=== PATIENT | female | born 1985 | race Caucasian/White ===

== ENCOUNTER 2018-04-27 05:51 | Emergency (ER) | payer BC ==
[~2018-04-27] VITALS: Ht 165.1 cm; Wt 61.8 kg
[~2018-04-27 05:51] MED LIST: AMOXICILLIN 50500 MG PO; FLAGYL250 MG PO; FLEXERIL10 MG PO; LORTAB 5/500 501 TAB PO; MIRENA52 MG IU; MOTRIN 800800 MG/TAB PO; NAPROSYN375 MG PO; NAPROXEN 3375 MG/TAB PO; NO HOME MEDICATIONS; NORCO 325 MG-51 TAB PO; PHENERGAN 25 TA25 MG PO; PROCTOFOAM15 GM RC; TRINESSA 281 TAB PO; VICODIN 5/5001 UDTAB PO
[2018-04-27 05:54] VITALS: TEMP 98.6
[2018-04-27 07:24] LABS: BASO # 0.1 (0.0-0.2); BASO % 0.9 % (0.0-2.0); EOS # 0.3 (0.0-0.7); EOS % 3.4 % (0-4.0); GRAN # 2.9 (1.4-6.5); GRAN % 39.6 % (42.2-75.2); HEMATOCRIT 44.8 % (37.0-47.0); HEMOGLOBIN 14.7 g/dl (12.5-16.0); LYMPH # 3.4 (1.2-3.4); LYMPH % 45.8 % (20.0-51.0); MEAN CELL VOLUME 88 fl (80.0-100.0); MEAN CORPUSCULAR HEMOGLOBIN 29 pg (27.0-31.0); MEAN CORPUSCULAR HGB CONC 33 g/dl (33.0-37.0); MEAN PLATELET VOLUME 11.8 fl (7.4-10.4); MONO # 0.8 (0.1-0.6); MONO % 10.2 % (1.7-9.3); PLATELET COUNT 227 K/mm3 (130-400); RED BLOOD COUNT 5.09 M/mm3 (4.10-5.30); REDCELL DISTRIBUTION WIDTH-CV 12.9 % (11.5-14.5)
[2018-04-27 07:49] LABS: COLLECTION METHOD CLEAN CATCH
[2018-04-27 07:56] LABS: MUCOUS Present /lpf; PH 5 (5-8); URINE APPEARANCE Hazy; URINE BACTERIA Rare /hpf; URINE BILIRUBIN Negative (NEGATIVE); URINE BLOOD 2+ (NEGATIVE); URINE COLOR Yellow; URINE GLUCOSE Negative (NEGATIVE); URINE KETONE Negative (NEGATIVE); URINE LEUKOCYTE ESTERASE Negative (NEGATIVE); URINE NITRATE Negative (NEGATIVE); URINE PROTEIN(semi-quant) Negative (NEGATIVE); URINE UROBILINOGEN Negative (NEGATIVE)
[2018-04-27 08:16] LABS: BILIRUBIN,TOTAL 0.3 mg/dL (0.0-1.0); C-REACTIVE PROTEIN 2.2 mg/dL (0.0-0.9); CALCIUM 8.6 mg/dL (8.4-10.2); CREATININE, serum 0.58 mg/dL (0.52-1.25); POTASSIUM 4.9 mmol/L (3.4-5.0); TOTAL PROTEIN 8.1 gm/dL (6.4-8.2)
[2018-04-27] MEDS ORDERED: ZOFRAN ODT4 MG PO (11:39)
[2018-04-27] MEDS ORDERED: NORCO 325 MG-51 TAB PO (11:39)
[2018-04-27 12:13] VITALS: BP 111/63; PULSE 72
== END 2018-04-27 12:15 | disposition home or self-care (01) ==
LOC: COL.ER 05:51
PROVIDERS: Emergency Medicine
DX: N83.202 Unspecified ovarian cyst, left side (principal); Z98.51 Tubal ligation status
CPT/HCPCS: J1170; J1885; J2405; J7030

== ENCOUNTER 2019-07-26 13:47 | Emergency (ER) | payer MEDICAID ==
[~2019-07-26] VITALS: Ht 165.1 cm; Wt 63.6 kg
[~2019-07-26 13:47] MED LIST changes: +NEXIUM 40MG40 MG PO; +ZOFRAN ODT4 MG PO
[2019-07-26 13:51] VITALS: BP 110/92; TEMP 98.3
[2019-07-26] MEDS ORDERED: LEXAPRO20 MG PO (13:54)
[2019-07-26] MEDS ORDERED: LATUDA20 MG PO (13:55)
[2019-07-26 16:35] VITALS: PULSE 62
== END 2019-07-26 16:35 | disposition home or self-care (01) ==
LOC: COL.ER 13:47
DX: S01.511A Laceration without foreign body of lip, initial encounter (principal); F32.9 Major depressive disorder, single episode, unspecified; F17.210 Nicotine dependence, cigarettes, uncomplicated; W01.0XXA Fall on same level from slipping, tripping and stumbling without subsequent striking against object, initial encounter

== ENCOUNTER 2019-11-27 12:05 | Emergency (ER) | payer MEDICAID ==
[~2019-11-27] VITALS: Ht 165.1 cm; Wt 63.6 kg
[~2019-11-27 12:05] MED LIST changes: +LATUDA20 MG PO; +LEXAPRO20 MG PO
[2019-11-27 12:15] VITALS: BP 123/73; TEMP 97.9
[2019-11-27 12:42] LABS: COLLECTION METHOD CLEAN CATCH
[2019-11-27 12:53] LABS: MUCOUS Present /lpf; PH 7 (5-8); SQUAMOUS EPITHELIAL 20-50 /hpf; URINE APPEARANCE Cloudy; URINE BACTERIA Rare /hpf; URINE BILIRUBIN Negative (NEGATIVE); URINE BLOOD Negative (NEGATIVE); URINE COLOR Yellow; URINE GLUCOSE Negative (NEGATIVE); URINE KETONE Negative (NEGATIVE); URINE LEUKOCYTE ESTERASE Negative (NEGATIVE); URINE NITRATE Negative (NEGATIVE); URINE PROTEIN(semi-quant) Negative (NEGATIVE); URINE UROBILINOGEN Negative (NEGATIVE)
[2019-11-27 14:10] LABS: BASO # 0.1 (0.0-0.2); EOS # 0.2 (0.0-0.7); EOS % 2.6 % (0-4.0); GRAN # 3.6 (1.4-6.5); GRAN % 51.1 % (42.2-75.2); HEMATOCRIT 44.3 % (37.0-47.0); HEMOGLOBIN 14.5 g/dl (12.5-16.0); LYMPH # 2.6 (1.2-3.4); LYMPH % 37.2 % (20.0-51.0); MEAN CELL VOLUME 90 fl (80.0-100.0); MEAN CORPUSCULAR HEMOGLOBIN 30 pg (27.0-31.0); MEAN CORPUSCULAR HGB CONC 33 g/dl (33.0-37.0); MEAN PLATELET VOLUME 11.7 fl (7.4-10.4); MONO # 0.6 (0.1-0.6); PLATELET COUNT 274 K/mm3 (130-400); RED BLOOD COUNT 4.91 M/mm3 (4.10-5.30); REDCELL DISTRIBUTION WIDTH-CV 13.2 % (11.5-14.5)
[2019-11-27 14:18] LABS: ALBUMIN 4.7 gm/dL (3.5-5.0); BILIRUBIN,TOTAL 0.3 mg/dL (0.0-1.0); CALCIUM 9.4 mg/dL (8.4-10.2); CREATININE, serum 0.56 (0.52-1.25); POTASSIUM 4.3 mmol/L (3.4-5.0); TOTAL PROTEIN 8.1 gm/dL (6.4-8.2)
[2019-11-27 14:19] LABS: C-REACTIVE PROTEIN 0.5 mg/dL (0.0-0.9)
[2019-11-27] MEDS ORDERED: NORCO 325 MG-7.1 TAB PO (16:05)
[2019-11-27] MEDS ORDERED: FLAGYL500 MG PO (16:08)
[2019-11-27 16:25] VITALS: PULSE 86
== END 2019-11-27 16:25 | disposition home or self-care (01) ==
LOC: COL.ER 12:05
PROVIDERS: Family Medicine; Physician Assistant
DX: N76.0 Acute vaginitis (principal); B96.89 Other specified bacterial agents as the cause of diseases classified elsewhere; F31.9 Bipolar disorder, unspecified; F41.9 Anxiety disorder, unspecified; F17.210 Nicotine dependence, cigarettes, uncomplicated; Z90.710 Acquired absence of both cervix and uterus
CPT/HCPCS: J1885; J2270; J7030

== ENCOUNTER 2021-06-11 09:31 | Emergency (ER) | payer MEDICAID ==
[~2021-06-11 09:31] MED LIST changes: +FLAGYL500 MG PO; +NORCO 325 MG-7.1 TAB PO
[2021-06-11 09:52] VITALS: BP 114/78; TEMP 98.9
[2021-06-11] MEDS ORDERED: ALA-CORT1% TP (11:21)
[2021-06-11 11:49] VITALS: PULSE 85
== END 2021-06-11 11:49 | disposition home or self-care (01) ==
LOC: COL.ER 09:31
DX: L30.9 Dermatitis, unspecified (principal)

== ENCOUNTER 2021-08-20 09:30 | Emergency (ER) | payer MEDICAID ==
[~2021-08-20] VITALS: Ht 165.1 cm; Wt 63.6 kg
[~2021-08-20 09:30] MED LIST changes: +ALA-CORT1% TP
[2021-08-20 09:52] VITALS: TEMP 98.2
[2021-08-20] MEDS ORDERED: ULTRAM 50MG TAB50 MG PO (10:26)
[2021-08-20 10:57] VITALS: BP 133/65; PULSE 71
== END 2021-08-20 10:58 | disposition home or self-care (01) ==
LOC: COL.ER 09:30
DX: M25.511 Pain in right shoulder (principal); F41.9 Anxiety disorder, unspecified; F32.A Depression, unspecified; F20.9 Schizophrenia, unspecified; F17.200 Nicotine dependence, unspecified, uncomplicated; Z79.899 Other long term (current) drug therapy

== ENCOUNTER 2022-05-23 22:45 | Emergency (ER) | payer MEDICAID ==
[~2022-05-23] VITALS: Ht 165.1 cm; Wt 70.5 kg
[~2022-05-23 22:45] MED LIST changes: +ULTRAM 50MG TAB50 MG PO
[2022-05-23] MEDS ORDERED: ZOFRAN ODT4 MG PO (23:45)
[2022-05-24] VITALS: BP 122/74; PULSE 74; TEMP 98.2
== END 2022-05-24 00:10 | disposition home or self-care (01) ==
LOC: COL.ER 22:45
DX: B34.9 Viral infection, unspecified (principal); F17.200 Nicotine dependence, unspecified, uncomplicated; Z20.822 Contact with and (suspected) exposure to COVID-19
CPT/HCPCS: J2405

== ENCOUNTER 2022-06-16 12:02 | Emergency (ER) | payer MEDICAID ==
[~2022-06-16] VITALS: Ht 165.1 cm; Wt 72.7 kg
[2022-06-16 12:52] LABS: BASO # 0.1 K/mm3 (0.0-0.2); BASO % 1.3 % (0.0-2.0); EOS # 0.1 K/mm3 (0.0-0.7); EOS % 2.2 % (0.0-4.0); GRAN # 2.8 K/mm3 (1.4-6.5); GRAN % 47.3 % (42.2-75.2); HEMATOCRIT 40.6 % (37.0-47.0); HEMOGLOBIN 13.8 g/dl (12.5-16.0); LYMPH # 2.4 K/mm3 (1.2-3.4); MEAN CELL VOLUME 89 fl (80.0-100.0); MEAN CORPUSCULAR HEMOGLOBIN 30 pg (27-31); MEAN CORPUSCULAR HGB CONC 34 g/dl (33.0-37.0); MEAN PLATELET VOLUME 10.7 fl (7.4-10.4); MONO # 0.5 K/mm3 (0.1-0.6); MONO % 8.9 % (1.7-9.3); PLATELET COUNT 284 K/mm3 (130-400); RED BLOOD COUNT 4.58 M/mm3 (4.10-5.30); REDCELL DISTRIBUTION WIDTH-CV 12.4 % (11.5-14.5)
[2022-06-16 12:55] LABS: COLLECTION METHOD CLEAN CATCH
[2022-06-16 13:05] LABS: MUCOUS Present (NOT PRESENT); SQUAMOUS EPITHELIAL 20-50 /hpf (0-10); URINE APPEARANCE Hazy (CLEAR/HAZY); URINE BACTERIA Rare /hpf (NONE SEEN); URINE COLOR Yellow (YELLOW)
[2022-06-16 13:06] LABS: PH 5.5 (5.0-8.5); URINE BLOOD 2+ (NEGATIVE); URINE GLUCOSE Negative (NEGATIVE); URINE KETONE Negative (NEGATIVE); URINE NITRATE Negative (NEGATIVE); URINE PROTEIN(semi-quant) TRACE (NEGATIVE); URINE UROBILINOGEN 0.2 E.U/dL (0.2-1.0)
[2022-06-16 13:07] LABS: ALBUMIN 4.2 gm/dL (3.5-5.0); BILIRUBIN,TOTAL 0.5 mg/dL (0.2-1.2); CALCIUM 9.2 mg/dL (8.4-10.2); CREATININE, serum 0.68 mg/dL (0.57-1.11); POTASSIUM 3.8 mmol/L (3.5-4.5); TOTAL PROTEIN 7.7 gm/dL (6.2-8.1)
[2022-06-16] MEDS ORDERED: CATAPRES 0.1MG0.1 MG PO (13:58)
[2022-06-16] MEDS ORDERED: XANAX 0.5MG0.5 MG PO (13:58)
[2022-06-16] MEDS ORDERED: ABILIFY 10MG TA10 MG PO (13:58)
[2022-06-16] MEDS ORDERED: WELLBUTRIN XL150 MG PO (13:58)
[2022-06-16 14:07] VITALS: BP 114/77; PULSE 62; TEMP 97.7
== END 2022-06-16 14:10 | disposition short-term general hospital (02) ==
LOC: COL.ER 12:02
PROVIDERS: Emergency Medicine
DX: R10.31 Right lower quadrant pain (principal); R11.2 Nausea with vomiting, unspecified; F17.210 Nicotine dependence, cigarettes, uncomplicated; Z32.02 Encounter for pregnancy test, result negative; Z87.42 Personal history of other diseases of the female genital tract
CPT/HCPCS: J2270; J2405; Q9967

== ENCOUNTER 2022-06-19 07:37 | Emergency (ER) | payer MEDICAID ==
[~2022-06-19] VITALS: Ht 165.1 cm; Wt 68.2 kg
[~2022-06-19 07:37] MED LIST changes: +ABILIFY 10MG TA10 MG PO; +CATAPRES 0.1MG0.1 MG PO; +WELLBUTRIN XL150 MG PO; +XANAX 0.5MG0.5 MG PO
[2022-06-19 07:44] VITALS: TEMP 97.8
[2022-06-19 08:39] LABS: BASO # 0.1 K/mm3 (0.0-0.2); BASO % 0.7 % (0.0-2.0); EOS # 0.1 K/mm3 (0.0-0.7); GRAN # 5.2 K/mm3 (1.4-6.5); GRAN % 62.8 % (42.2-75.2); HEMATOCRIT 43.3 % (37.0-47.0); HEMOGLOBIN 14.7 g/dl (12.5-16.0); LYMPH # 2.4 K/mm3 (1.2-3.4); LYMPH % 28.6 % (20.0-51.0); MEAN CELL VOLUME 88 fl (80.0-100.0); MEAN CORPUSCULAR HEMOGLOBIN 30 pg (27-31); MEAN CORPUSCULAR HGB CONC 34 g/dl (33.0-37.0); MEAN PLATELET VOLUME 10.9 fl (7.4-10.4); MONO # 0.6 K/mm3 (0.1-0.6); MONO % 6.7 % (1.7-9.3); PLATELET COUNT 303 K/mm3 (130-400); RED BLOOD COUNT 4.95 M/mm3 (4.10-5.30); REDCELL DISTRIBUTION WIDTH-CV 12.2 % (11.5-14.5)
[2022-06-19 08:58] LABS: ALBUMIN 4.3 gm/dL (3.5-5.0); BILIRUBIN,TOTAL 0.3 mg/dL (0.2-1.2); C-REACTIVE PROTEIN 1.07 mg/dL (0.00-0.50); CALCIUM 10.6 mg/dL (8.4-10.2); CREATININE, serum 0.67 mg/dL (0.57-1.11); POTASSIUM 4.2 mmol/L (3.5-4.5); TOTAL PROTEIN 8.1 gm/dL (6.2-8.1)
[2022-06-19 09:44] LABS: COLLECTION METHOD CLEAN CATCH
[2022-06-19 09:54] LABS: SQUAMOUS EPITHELIAL 0-2 /hpf (0-10); URINE APPEARANCE Clear (CLEAR/HAZY); URINE BACTERIA None Seen /hpf (NONE SEEN); URINE COLOR Yellow (YELLOW)
[2022-06-19 09:55] LABS: URINE BLOOD 1+ (NEGATIVE); URINE GLUCOSE Negative (NEGATIVE); URINE KETONE Negative (NEGATIVE); URINE NITRATE Negative (NEGATIVE); URINE PROTEIN(semi-quant) Negative (NEGATIVE); URINE UROBILINOGEN 0.2 E.U/dL (0.2-1.0)
[2022-06-19] MEDS ORDERED: NORCO 325 MG-51 TAB PO (10:01)
[2022-06-19 10:55] VITALS: BP 122/68; PULSE 80
== END 2022-06-19 11:00 | disposition home or self-care (01) ==
LOC: COL.ER 07:37
PROVIDERS: Family Medicine
DX: K52.9 Noninfective gastroenteritis and colitis, unspecified (principal)
CPT/HCPCS: C9113; J2270; J7120

== ENCOUNTER 2024-07-12 07:16 | Emergency (ER) | payer MEDICAID ==
[~2024-07-12] VITALS: Ht 165.1 cm; Wt 59.1 kg
[2024-07-12 07:19] VITALS: TEMP 97.9
[2024-07-12] MEDS ORDERED: FLEXERIL 1010 MG/TAB PO (08:06)
[2024-07-12] MEDS ORDERED: PERCOCET 325 MG1 TA2 PO (08:06)
[2024-07-12] MEDS ORDERED: Morphine 10 MG/ML VIAL IM ONE (08:15)
[2024-07-12 08:55] VITALS: BP 139/88; PULSE 76
== END 2024-07-12 08:57 | disposition home or self-care (01) ==
LOC: COL.ER 07:16
DX: S13.4XXA Sprain of ligaments of cervical spine, initial encounter (principal); X58.XXXA Exposure to other specified factors, initial encounter
CPT/HCPCS: J2270; J2360

== ENCOUNTER 2024-07-14 10:00 | Emergency (ER) | payer MEDICAID ==
[~2024-07-14] VITALS: Ht 165.1 cm; Wt 59.1 kg
[~2024-07-14 10:00] MED LIST changes: +FLEXERIL 1010 MG/TAB PO; +PERCOCET 325 MG1 TA2 PO
[2024-07-14 10:05] VITALS: TEMP 97.8
[2024-07-14 13:35] VITALS: BP 133/98; PULSE 73
== END 2024-07-14 13:39 | disposition home or self-care (01) ==
LOC: COL.ER 10:00
DX: M62.838 Other muscle spasm (principal); R20.2 Paresthesia of skin

== ENCOUNTER → 2024-07-20 | Outpatient (CLI) | payer MEDICAID | LOC: COL.RAD 11:15 | DX: M54.2 Cervicalgia (principal) ==